=== PATIENT | male | born 1980 | race Caucasian/White ===

== ENCOUNTER 2024-08-30 06:10 | Emergency (ER) | payer BC, OTHER ==
[~2024-08-30] VITALS: Ht 182.9 cm; Wt 86.4 kg
[2024-08-30 08:08] VITALS: TEMP 96.9
[2024-08-30 13:27] LABS: BILIRUBIN,URINE NEGATIVE (Neg); CLARITY,URINE SLIGHTLY CLOUDY (Clear); COLOR,URINE YELLOW (Yellow); GLUCOSE, URINE NEGATIVE (Neg); KETONES,URINE NEGATIVE (Neg); LEUKOCYTE ESTERASE ,URINE TRACE (Neg); NITRITES, URINE NEGATIVE (Neg); OCCULT BLOOD,URINE TRACE-INTACT (Neg); PH,URINE 5.5 (4.8-8.0); PROTEIN,URINE NEGATIVE (Neg); UROBILINOGEN,URINE 0.2 E.U/dL (0.2-1.0)
[2024-08-30 13:30] LABS: UA COLLECTION TYPE CLN CATCH MIDSTREAM
[2024-08-30 13:33] LABS: MUCUS STRANDS FEW /LPF (Neg); SQUAMOUS EPITHELIAL CELL,UR MODERATE /LPF (FEW)
[2024-08-30 13:34] LABS: BACTERIA,URINE FEW /HPF (Neg); RBC,URINE 0-2 /HPF (0-2); TRANSITIONAL EPI CELLS,URINE FEW /HPF
[2024-08-30 14:45] LABS: EOSINOPHILS # (AUTO) 0.1 X10'3 (0-0.9); EOSINOPHILS % (AUTO) 0.9 % (0-6); LYMPHOCYTES # (AUTO) 2.4 X10'3 (1.1-4.8); MEAN CORPUSCULAR VOLUME 90.8 FL (78-98); MONOCYTES # (AUTO) 0.8 X10'3 (0-0.9); NEUTROPHILS # (AUTO) 8.3 X10'3 (1.8-7.7); RED CELL DISTRIBUTION WIDTH 13.4 % (11.5-14.5); WHITE BLOOD COUNT 11.7 X10'3 (4.5-11.0)
[2024-08-30 14:47] LABS: BASOPHILS % (AUTO) 0.2 % (0-1); HEMATOCRIT 44.5 % (42.0-52.0); HEMOGLOBIN 14.9 g/dl (14.0-17.9); LYMPHOCYTES % (AUTO) 20.8 % (21-51); MEAN CORPUSCULAR HEMOGLOBIN 30.3 PG (27.0-31.0); MEAN CORPUSCULAR HGB CONC 33.4 g/dL (33.0-36.5); MEAN PLATELET VOLUME 8.5 FL (7.4-10.4); MONOCYTES % (AUTO) 7.2 % (2-12); NEUTROPHILS % (AUTO) 70.9 % (42-75); PLATELET COUNT 363 X10'3 (140-440)
[2024-08-30 14:58] LABS: ALANINE AMINOTRANSFERASE 26 U/L (12-78); ALKALINE PHOSPHATASE 64 IU/L (46-116); ANION GAP 7 (8-16); ASPARTATE AMINO TRANSFERASE 16 U/L (10-37); BILIRUBIN,TOTAL 0.9 MG/DL (0.1-1.0); BLOOD UREA NITROGEN 14 MG/DL (7-18); BUN/CREATININE RATIO 17.5 (10.0-20.0); CHLORIDE 103 MMOL/L (99-107); GLUCOSE 82 MG/DL (70-104); LIPASE 49 U/L (16-77); POTASSIUM 3.9 MMOL/L (3.5-5.1); SODIUM 139 MMOL/L (135-145); TOTAL CARBON DIOXIDE 29.1 MMOL/L (24-32); TOTAL PROTEIN 7.9 G/DL (6.4-8.2); eCRCL 128 ML/MIN; eGFR > 90 ML/MIN
[2024-08-30] MEDS ORDERED: magnesium hydroxide 30ml (MOM) UD suspension PO PRN (15:35)
[2024-08-30] MEDS ORDERED: morphine 2 MG/ML inj. syringe IV PRN ×2 (15:35)
[2024-08-30] MEDS ORDERED: magnesium sulf-water 2g/50mL 50 ML IV PRN (15:35)
[2024-08-30] MEDS: thiamine 100mg tablet PO SCH (15:35)
[2024-08-30] MEDS ORDERED: haloperidol 5mg tablet PO PRN (15:35)
[2024-08-30] MEDS ORDERED: potassium Cl 40MEQ/1/2NS 520ml 520 ML IV PRN (15:35)
[2024-08-30] MEDS ORDERED: magnesium sulf-water 4G/100mL 100 ML IV PRN (15:35)
[2024-08-30] MEDS: folic acid 1mg tablet PO SCH (15:35)
[2024-08-30] MEDS ORDERED: LORazepam 2 mg/ml vial IV PRN (15:35)
[2024-08-30] MEDS ORDERED: LORazepam 1 MG tablet PO PRN (15:35)
[2024-08-30] MEDS ORDERED: potassium Cl 20 mEq SR tablet PO PRN ×2 (15:35)
[2024-08-30] MEDS ORDERED: haloperidol lactate 5mg/ml inj IM PRN (15:35)
[2024-08-30] MEDS ORDERED: acetaminophen 325mg tablet PO PRN (15:35)
[2024-08-30] MEDS ORDERED: mag hydrox/Alum hydrox/simeth 30ml oral suspension PO PRN (15:35)
[2024-08-30] MEDS ORDERED: ondansetron/PF 4mg/2ml inj IV PRN (15:35)
[2024-08-30] MEDS ORDERED: magnesium Cl slow-release 64mg tablet PO PRN (15:35)
[2024-08-30] MEDS: LIDOcaine 1% 30ml preserv. free vial SQ STA (15:48)
[2024-08-30] MEDS: LidoCAINE 2% Topical Jelly 11mL syringe (UROJET) TOP ONE (15:49)
[2024-08-30] MEDS: povidone-iodine 120ml topical solution TP ONE (15:49)
[2024-08-30 16:11] LABS: MAGNESIUM 2.3 MG/DL (1.5-2.4); PHOSPHORUS 3.7 MG/DL (2.3-4.5)
[2024-08-30 16:17] LABS: HEMOGLOBIN A1C 5.4 % (4.5-6.2)
[2024-08-30 16:20] LABS: APTT 27 SECONDS (22-32); INR 1.1 INR; PROTHROMBIN TIME 11.4 SECONDS (9.0-12.0)
[2024-08-30] MEDS ORDERED: metroNIDAZOLE-Flagyl 500mg/NS 100 ML IV SCH (16:40)
[2024-08-30 17:28] VITALS: BP 134/89; PULSE 81; RESP 18; O2SAT 99
[2024-08-30] MEDS ORDERED: K and/or MAG REPLACEMENT MC SCH (20:00)
[2024-08-30] MEDS ORDERED: docusate sod 100mg capsule PO SCH (20:00)
[2024-08-31] MEDS ORDERED: enoxaparin 40mg/0.4ml syringe SUBCUT SCH (08:00)
[2024-08-31] MEDS ORDERED: multivitamins, therapeutics tablet PO SCH (08:00)
== END 2024-08-30 17:29 | disposition left against medical advice (07) ==
LOC: ER 06:11 → ED HOLD 15:42 → UNDOADMIN 15:42 → UNDODISIN 17:29
DX: N47.1 Phimosis (principal); N47.6 Balanoposthitis; Z90.49 Acquired absence of other specified parts of digestive tract; F32.A Depression, unspecified
CPT/HCPCS: 36415; 51702; 80053; 81001; 83036; 83690; 83735; 84100; 85025; 85610; 85730; 87088; 99284; C1758; 99283; 99285; A4358; A6449; G0378